=== PATIENT | male | born 1990 | race African-American/Black ===

== ENCOUNTER 2017-03-31 07:56 | Emergency (ER) | payer OTHER ==
[2017-03-31] MEDS: KETOROLAC 30 MG/ML VIAL (J1885) IV (09:30)
[2017-03-31] MEDS: METOCLOPRAMIDE INJ 10MG/2ML VIAL (J2765) IV (09:30)
[2017-03-31] MEDS: NS 1,000 ML IV (09:30)
== END 2017-03-31 10:37 | disposition home or self-care (01) ==
LOC: M ED 07:56
DX: G43.709 Chronic migraine without aura, not intractable, without status migrainosus (principal)
CPT/HCPCS: J1885

== ENCOUNTER 2017-08-04 17:28 | Emergency (ER) | payer OTHER | END 2017-08-04 20:34 | disposition left against medical advice (07) | LOC: M ED 17:28 | DX: R00.2 Palpitations (principal); Z53.21 Procedure and treatment not carried out due to patient leaving prior to being seen by health care provider ==

== ENCOUNTER 2018-02-13 07:46 | Emergency (ER) | payer OTHER | END 2018-02-13 11:06 | disposition home or self-care (01) | LOC: M ED 07:46 | DX: S70.922A Unspecified superficial injury of left thigh, initial encounter (principal); X58.XXXA Exposure to other specified factors, initial encounter; Y92.511 Restaurant or cafe as the place of occurrence of the external cause; R51 Headache; M54.2 Cervicalgia; R93.0 Abnormal findings on diagnostic imaging of skull and head, not elsewhere classified | CPT/HCPCS: 73552 ==